=== PATIENT | male | born 1990 | race African-American/Black ===

== ENCOUNTER 2016-03-13 11:36 | Emergency (ER) | payer OTHER ==
--- NOTE | 2016-03-13 11:49 | ER Document Report ---
ED Medical Screen (RME) - General Chief Complaint: Flu Symptoms Stated Complaint: FLU LIKE SIMPTOMS Time seen by provider: 11:47 Mode of Arrival: Ambulatory Information source: Patient Notes: 26-year-old male presents to ED for flu like symptoms for the last 2 weeks. Cough and runny nose with a lot of mucous sometimes he has trouble breathing and sometimes when he coughs, the cough is so bad at times that it stopped him and his tract. I have greeted and performed a rapid initial assessment of this patient. A comprehensive ED assessment and evaluation of the patient, analysis of test results and completion of medical decision making process will be conducted by an additional ED providers. TRAVEL OUTSIDE OF THE [place] IN LAST 30 DAYS: No - Related Data Allergies/Adverse Reactions: Shellfish * [Shellfish] Allergy (Verified 06/21/15 12:14) Past Medical History Pulmonary Medical History: Reports: Hx Asthma - childhood Past Surgical History: Reports: Hx Adenoidectomy, Hx Tonsillectomy - Immunizations Immunizations up to date: Yes Hx Diphtheria, Pertussis, Tetanus Vaccination: Yes Physical Exam - Vital signs Vitals: Temp Pulse Resp BP Pulse Ox 98.2 F 88 18 122/79 97 03/13/16 11:44 03/13/16 11:44 03/13/16 11:44 03/13/16 11:44 03/13/16 11:44 Course - Vital Signs Vital signs: Temp Pulse Resp BP Pulse Ox 98.2 F 88 18 122/79 97 03/13/16 11:44 03/13/16 11:44 03/13/16 11:44 03/13/16 11:44 03/13/16 11:44
[2016-03-13] MEDS ORDERED: ALBUTEROL SULFATE HFA (90 MCG/PUFF) 8 GM MDI (1 MDI/ER DISP) IH ONE (17:46)
--- NOTE | 2016-03-13 17:58 | ER Document Report ---
HPI - HPI Patient complains to provider of: sinus congestion Pain Level: 4 Context: H and is a 26-year-old male presents emergency Department complaining of lethargy, chills, cough, nasal congestion and wheezing. Patient states that he has had symptoms on and off for the past month. He has been taking over-the- counter DayQuil and Tylenol Cold with minimal tenderness congestion but overall pain is improved. Patient does have a history of asthma that he has not been using an albuterol inhaler for a couple years. Otherwise he denies any fever, headaches, chest pain, nausea or vomiting. Tolerating a by mouth even though he has a decreased diet. Denies any abnormal bowel movements Does not have any other past medical history outside of asthma Does not have any past surgical history Social history admits to social alcohol use Denies any allergies does not have a primary care provider - CONSTITUTIONAL Constitutional: REPORTS: Chills - EENT EENT: REPORTS: Ear Pain, Nasal Drainage-Clear - NEURO Neurology: REPORTS: Weakness - RESPIRATORY Respiratory: REPORTS: Coughing - MUSCULOSKELETAL Musculoskeletal: REPORTS: Extremity pain, Back Pain - DERM Skin Color: Normal Past Medical History - General Information source: Patient - Social History Smoking Status: Never Smoker Family History: Malignancy Patient has suicidal ideation: No Patient has homicidal ideation: No Pulmonary Medical History: Reports: Hx Asthma - childhood Renal/ Medical History: Denies: Hx Peritoneal Dialysis Past Surgical History: Reports: Hx Adenoidectomy, Hx Tonsillectomy - Immunizations Immunizations up to date: Yes Hx Diphtheria, Pertussis, Tetanus Vaccination: Yes Vertical Provider Document - CONSTITUTIONAL Exam Limitations: No Limitations General Appearance: WD/WN, Mild Distress - INFECTION CONTROL TRAVEL OUTSIDE OF THE [place] IN LAST 30 DAYS: No - HEENT HEENT: Atraumatic, Normocephalic, PERRLA. negative: Pharyngeal Exudate, Pharyngeal Tenderness, Pharyngeal Erythema, Tympanic Membrane Red, Tympanic Membrane Bulging Notes: sinus pressure and congestion with clear discharge - NECK Neck: Normal Inspection, Supple. negative: Lymphadenopathy-Left, Lymphadenopathy-Right - RESPIRATORY Respiratory: No Respiratory Distress, Chest Non-Tender, Wheezing O2 Sat by Pulse Oximetry: 97 - CARDIOVASCULAR Cardiovascular: Regular Rate, Regular Rhythm, No Murmur Pulses: Bounding: Radial - BACK Back: Normal Inspection - MUSCULOSKELETAL/EXTREMETIES Musculoskeletal/Extremeties: MAEW, FROM, Non-Tender, No Edema - NEURO Level of Consciousness: Awake, Alert, Appropriate Motor/Sensory: No Motor Deficit, No Sensory Deficit - DERM Integumentary: Warm, Dry, No Rash Course - Re-evaluation Re-evalutation: 03/13/16 17:57 Patient is a 26-year-old male who is hemodynamically stable, no acute distress and afebrile. Patient educated on eipo-ehr-ccifrys medications he can take for his nasal congestion. No evidence of pneumonia or other cardiopulmonary process on chest x-ray. We will educate to use albuterol inhaler while here. Wheezing is improved after treatment of Ventolin inhaler. Patient educated on use. Stable for discharge home and can follow-up with his primary care provider - Vital Signs Vital signs: Temp Pulse Resp BP Pulse Ox 98.2 F 88 18 122/79 97 03/13/16 11:46 03/13/16 11:46 03/13/16 11:46 03/13/16 11:46 03/13/16 11:46 - Diagnostic Test Radiology reviewed: Image reviewed, Reports reviewed Discharge - Discharge Clinical Impression: Nasal congestion Asthma Qualifiers: Asthma severity: mild intermittent Asthma complication type: uncomplicated Qualified Code(s): J45.20 - Mild intermittent asthma, uncomplicated Condition: Good Disposition: HOME, SELF-CARE Instructions: Bronchospasm ([facility]) Additional Instructions: Here is a list of medications that will help with your symptoms. All of these are available in multiple forms over the counter - Acetaminophen: pain reliever and fever lab pack chemist - Phenylephrine: Nasal decongestant - Benadryl: antihistamine, will help you sleep - You can also use a Neti pot for nasal and sinus irrigation Forms: Return to Work, Parent Work Note
[2016-03-13 18:33] VITALS: BP 118/71
== END 2016-03-13 18:32 | disposition home or self-care (01) ==
LOC: ER 11:36
DX: J45.20 Mild intermittent asthma, uncomplicated (principal); R09.81 Nasal congestion; R05 Cough; R06.2 Wheezing
CPT/HCPCS: 99283; 71020; J3490

== ENCOUNTER 2016-03-28 09:47 | Emergency (ER) | payer OTHER ==
[2016-03-28] MEDS ORDERED: ONDANSETRON 4 MG TAB.RAPDIS PO ONE (10:34)
--- NOTE | 2016-03-28 10:35 | ER Document Report ---
ED Medical Screen (RME) - General Stated Complaint: WEAK Mode of Arrival: Ambulatory Information source: Patient Notes: Patient complains of fever off and on and generalized weakness for the past 2 to weeks. Patient does complain of cough and cold symptoms. Patient does complain of nausea, vomiting, diarrhea. No abdominal pain. hx: None I have greeted and performed a rapid initial assessment of this patient. A comprehensive ED assessment and evaluation of the patient, analysis of test results and completion of the medical decision making process will be conducted by additional ED providers. TRAVEL OUTSIDE OF THE [place] IN LAST 30 DAYS: No - Related Data Allergies/Adverse Reactions: Shellfish * [Shellfish] Allergy (Verified 03/28/16 10:32) Past Medical History Pulmonary Medical History: Reports: Hx Asthma - childhood Renal/ Medical History: Denies: Hx Peritoneal Dialysis Past Surgical History: Reports: Hx Adenoidectomy, Hx Tonsillectomy - Immunizations Immunizations up to date: Yes Hx Diphtheria, Pertussis, Tetanus Vaccination: Yes Physical Exam - Vital signs Vitals: Temp Pulse Resp BP Pulse Ox 98.6 F 104 H 18 111/63 94 03/28/16 10:19 03/28/16 10:19 03/28/16 10:19 03/28/16 10:19 03/28/16 10:19 - General General appearance: Appears well, Alert In distress: None Course - Vital Signs Vital signs: Temp Pulse Resp BP Pulse Ox 98.6 F 104 H 18 111/63 94 03/28/16 10:19 03/28/16 10:19 03/28/16 10:19 03/28/16 10:19 03/28/16 10:19
[2016-03-28 11:03] LABS: ABSOLUTE LYMPHOCYTES (AUTO) 2.5 10^3/uL (0.5-4.7); ABSOLUTE MONOCYTES (AUTO) 0.7 10^3/uL (0.1-1.4); BASOPHILS % (AUTO) 0.4 % (0-2); EOSINOPHILS % (AUTO) 0.1 % (0-6); HEMATOCRIT 41.4 % (37.9-51.0); HEMOGLOBIN 14.1 g/dL (13.5-17.0); HGB HCT DIFFERENCE 0.9; LYMPHOCYTES % (AUTO) 34.6 % (13-45); MEAN CORPUSCULAR HEMOGLOBIN 30.3 pg (27.0-33.4); MEAN CORPUSCULAR VOLUME 89 fl (80-97); MONOCYTES % (AUTO) 10.2 % (3-13); RED BLOOD COUNT 4.63 10^6/uL (4.35-5.55); RED CELL DISTRIBUTION WIDTH 12.6 % (11.5-14.0); SEGMENTED NEUTROPHILS % (AUTO) 54.7 % (42-78); WHITE BLOOD COUNT 7.3 10^3/uL (4.0-10.5)
[2016-03-28 11:07] LABS: APPEARANCE,URINE SLIGHTLY-CLOUDY; BILIRUBIN,URINE NEGATIVE (NEGATIVE); GLUCOSE, URINE NEGATIVE (NEGATIVE); KETONES,URINE NEGATIVE (NEGATIVE); LEUKOCYTE ESTERASE,URINE NEGATIVE (NEGATIVE); NITRITE,URINE NEGATIVE (NEGATIVE); PROTEIN,URINE 30 mg/dL (NEGATIVE); URINE SPECIFIC GRAVITY 1.034
[2016-03-28 11:23] LABS: ALANINE AMINOTRANSFERASE 35 U/L (21-72); ALBUMIN 4.8 g/dL (3.5-5.0); ALKALINE PHOSPHATASE 85 U/L (38-126); ANION GAP 13 (5-19); ASPARTATE AMINO TRANSFERASE 30 U/L (17-59); BILIRUBIN,TOTAL 0.5 mg/dL (0.2-1.3); BLOOD UREA NITROGEN 13 mg/dL (7-20); CALCIUM 9.5 mg/dL (8.4-10.2); CARBON DIOXIDE 29 mmol/L (22-30); CHLORIDE 100 mmol/L (98-107); CREATININE RESULT 1.04 mg/dL (0.52-1.25); LIPASE 84.5 U/L (23-300); POTASSIUM 4.3 mmol/L (3.6-5.0); SODIUM 141.5 mmol/L (137-145); TOTAL PROTEIN 8.5 g/dL (6.3-8.2)
[2016-03-28 11:39] LABS: GLUCOSE 88 mg/dL (75-110)
[2016-03-28] MEDS ORDERED: NORMAL SALINE 1000 ML 1,000 ML IV PRN (12:48)
--- NOTE | 2016-03-28 13:40 | ER Document Report ---
ED General - General Chief Complaint: Cold Symptoms Stated Complaint: WEAK Mode of Arrival: Ambulatory TRAVEL OUTSIDE OF THE [place] IN LAST 30 DAYS: No - HPI Patient complains to provider of: flulike symptoms Notes: Patient complains of fever off and on and generalized weakness for the past 2 to weeks. Patient does complain of cough and cold symptoms. Patient does complain of nausea, vomiting, diarrhea. Patient states symptoms ongoing since the last 2 weeks states patient states multiple sick contacts at home. Denies any recent antibiotics travel. - Related Data Allergies/Adverse Reactions: Shellfish * [Shellfish] Allergy (Verified 03/28/16 10:32) Past Medical History - General Information source: Patient - Social History Smoking Status: Never Smoker Chew tobacco use (# tins/day): No Frequency of alcohol use: None Drug Abuse: None Family History: Malignancy Patient has suicidal ideation: No Patient has homicidal ideation: No Pulmonary Medical History: Reports: Hx Asthma - childhood Renal/ Medical History: Denies: Hx Peritoneal Dialysis Past Surgical History: Reports: Hx Adenoidectomy, Hx Tonsillectomy - Immunizations Immunizations up to date: Yes Hx Diphtheria, Pertussis, Tetanus Vaccination: Yes Review of Systems - Review of Systems Constitutional: Fever, Malaise, Weakness EENT: No symptoms reported Cardiovascular: No symptoms reported Respiratory: No symptoms reported Gastrointestinal: Diarrhea, Nausea, Vomiting Genitourinary: No symptoms reported Male Genitourinary: No symptoms reported Musculoskeletal: No symptoms reported Skin: No symptoms reported Hematologic/Lymphatic: No symptoms reported Neurological/Psychological: No symptoms reported -: Yes All other systems reviewed and negative Physical Exam - Vital signs Vitals: Temp Pulse Resp BP Pulse Ox 98.6 F 104 H 18 111/63 94 03/28/16 10:19 03/28/16 10:19 03/28/16 10:19 03/28/16 10:19 03/28/16 10:19 Interpretation: Normal - General General appearance: Appears well, Alert - HEENT Head: Normocephalic, Atraumatic Eyes: Normal Pupils: PERRL - Respiratory Respiratory status: No respiratory distress Chest status: Nontender Breath sounds: Normal Chest palpation: Normal - Cardiovascular Rhythm: Regular Heart sounds: Normal auscultation Murmur: No - Abdominal Inspection: Normal Distension: No distension Bowel sounds: Normal Tenderness: Nontender Organomegaly: No organomegaly - Back Back: Normal, Nontender - Extremities General upper extremity: Normal inspection, Nontender, Normal color, Normal ROM , Normal temperature General lower extremity: Normal inspection, Nontender, Normal color, Normal ROM , Normal temperature, Normal weight bearing. No: Ranjit's sign - Neurological Neuro grossly intact: Yes Cognition: Normal Orientation: AAOx4 Maurisio Coma Scale Eye Opening: Spontaneous [place] Coma Scale Verbal: Oriented [place] Coma Scale Motor: Obeys Commands Maurisio Coma Scale Total: 15 Speech: Normal Motor strength normal: LUE, RUE, LLE, RLE Sensory: Normal - Psychological Associated symptoms: Normal affect, Normal mood - Skin Skin Temperature: Warm Skin Moisture: Dry Skin Color: Normal Course - Re-evaluation Re-evalutation: 03/28/16 20:33 Patient has been evaluated for flulike symptoms. At this time there is no signs of serious illness no signs of sepsis or other serious etiologies. Patient was educated about the disease process. Patient was placed on the appropriate medications to help with their symptoms. Patient was also encouraged to drink plenty of fluids and stay well hydrated. Patient is to followup with their primary care provider. - Vital Signs Vital signs: Temp Pulse Resp BP Pulse Ox 98.1 F 80 18 110/60 100 03/28/16 13:56 03/28/16 13:56 03/28/16 13:56 03/28/16 13:56 03/28/16 13:56 - Laboratory Result Diagrams: 03/28/16 10:50 03/28/16 10:50 Laboratory results interpreted by me: 03/28/16 03/28/16 10:50 10:50 Total Protein 8.5 H Urine Protein 30 H Urine Urobilinogen 2.0 H Discharge - Discharge Clinical Impression: Viral illness Condition: Good Disposition: HOME, SELF-CARE Instructions: Fever ([facility]), Acetaminophen, Viral Syndrome ([facility]), Ibuprofen ( General) ([facility]) Additional Instructions: Follow-up with your primary care physician. Take medication as prescribed for nausea vomiting. Prescriptions: Ondansetron [Zofran Odt 4 mg Tablet] 1 - 2 tab PO Q4H PRN #15 tab.rapdis PRN Reason: For Nausea/Vomiting Promethazine HCl [Phenergan 25 mg Tablet] 1 - 2 tab PO Q6H PRN #15 tablet PRN Reason: Forms: Return to Work Referrals: [facility] [Primary Care Provider] - Follow up in 3-5 days
[2016-03-28 13:58] VITALS: BP 110/60
== END 2016-03-28 13:57 | disposition home or self-care (01) ==
LOC: ER 09:47
DX: R53.1 Weakness (principal); R50.9 Fever, unspecified; B34.9 Viral infection, unspecified; R11.2 Nausea with vomiting, unspecified; R19.7 Diarrhea, unspecified; Z91.013 Allergy to seafood
CPT/HCPCS: 99283; 36415; 83690; 85025; 80053; 81001; 71020; S0119; J7030

== ENCOUNTER 2016-10-25 17:28 | Emergency (ER) | payer OTHER ==
[2016-10-25] MEDS ORDERED: IBUPROFEN 800 MG TABLET PO ONE (18:42)
[2016-10-25] MEDS ORDERED: PSEUDOEPHEDRINE HCL 30 MG TABLET PO ONE (18:42)
[2016-10-25] MEDS ORDERED: LORATADINE 10 MG TABLET PO ONE (18:42)
[2016-10-25] MEDS ORDERED: GUAIFENESIN 600 MG TABLET.SA PO ONE (18:42)
--- NOTE | 2016-10-25 18:49 | ER Document Report ---
ED ENT - General Chief Complaint: Sinus Congestion Stated Complaint: CONGESTION,SINUS PAIN,FEVER Time Seen by Provider: 10/25/16 18:33 Mode of Arrival: Ambulatory Information source: Patient Notes: 26-year-old male presents to ED for cough and cold symptoms. He states he had a fever of 100-2 days ago but no fever since then. He denies any shortness of breath or difficulty breathing. TRAVEL OUTSIDE OF THE [place] IN LAST 30 DAYS: No - HPI Onset: Other Onset/Duration: Gradual - 3 days Quality of pain: Achy Severity: Mild Pain Level: 2 Context: Recent Illness Location of pain: Nose, Sinus, Throat Associated symptoms: Nose bleed, Runny nose, Sinus pain, Sinus drainage, Sore throat Similar symptoms previously: Yes Recently seen / treated by doctor: No - Related Data Allergies/Adverse Reactions: Shellfish * [Shellfish] Allergy (Verified 10/25/16 17:44) Past Medical History - General Information source: Patient - Social History Smoking Status: Never Smoker Cigarette use (# per day): No Chew tobacco use (# tins/day): No Smoking Education Provided: No Frequency of alcohol use: None Drug Abuse: None Occupation: [employer] with: Family Family History: Malignancy Patient has suicidal ideation: No Patient has homicidal ideation: No - Past Medical History Cardiac Medical History: Reports: None Pulmonary Medical History: Reports: Hx Asthma - childhood EENT Medical History: Reports: None Neurological Medical History: Reports: None Endocrine Medical History: Reports: None Renal/ Medical History: Reports: None Malignancy Medical History: Reports None GI Medical History: Reports: None Musculoskeltal Medical History: Reports None Skin Medical History: Reports None Psychiatric Medical History: Reports: None Traumatic Medical History: Reports: None Infectious Medical History: Reports: None Past Surgical History: Reports: Hx Adenoidectomy, Hx Tonsillectomy - Immunizations Immunizations up to date: Yes Hx Diphtheria, Pertussis, Tetanus Vaccination: Yes Review of Systems - Review of Systems Constitutional: Fever, Recent illness EENT: Nose congestion, Nose discharge, Sinus pressure, Sinus discharge, Throat pain Cardiovascular: No symptoms reported Respiratory: Cough Gastrointestinal: No symptoms reported Genitourinary: No symptoms reported Male Genitourinary: No symptoms reported Musculoskeletal: No symptoms reported Skin: No symptoms reported Hematologic/Lymphatic: No symptoms reported Neurological/Psychological: No symptoms reported -: Yes All other systems reviewed and negative Physical Exam - Vital signs Vitals: Temp Pulse Resp BP Pulse Ox 98.5 F 87 16 127/78 H 98 10/25/16 17:44 10/25/16 17:44 10/25/16 17:44 10/25/16 17:44 10/25/16 17:44 Interpretation: Normal - General General appearance: Appears well, Alert - HEENT Head: Normocephalic, Atraumatic Eyes: Normal Pupils: PERRL Ears: Normal External canal: Normal Tympanic membrane: Normal Sinus: Normal Nasal: Purulent discharge, Swelling Mouth/Lips: Normal Mucous membranes: Normal Pharynx: Post nasal drainage Neck: Normal - Respiratory Respiratory status: No respiratory distress Chest status: Nontender Breath sounds: Normal Chest palpation: Normal - Cardiovascular Rhythm: Regular Heart sounds: Normal auscultation Murmur: No - Abdominal Inspection: Normal Distension: No distension Bowel sounds: Normal Tenderness: Nontender Organomegaly: No organomegaly - Back Back: Normal, Nontender - Extremities General upper extremity: Normal inspection, Nontender, Normal color, Normal ROM , Normal temperature General lower extremity: Normal inspection, Nontender, Normal color, Normal ROM , Normal temperature, Normal weight bearing. No: Ranjit's sign - Neurological Neuro grossly intact: Yes Cognition: Normal Orientation: AAOx4 Page Coma Scale Eye Opening: Spontaneous [place] Coma Scale Verbal: Oriented Maurisio Coma Scale Motor: Obeys Commands [place] Coma Scale Total: 15 Speech: Normal Motor strength normal: LUE, RUE, LLE, RLE Sensory: Normal - Psychological Associated symptoms: Normal affect, Normal mood - Skin Skin Temperature: Warm Skin Moisture: Dry Skin Color: Normal Course - Re-evaluation Re-evalutation: 10/25/16 22:07 Assessment consistent with upper respiratory infection. No signs of a sinus infection. Signs of strep throat. Afebrile vital signs stable. Was discharged home after receiving Claritin and Sudafed and Mucinex and ibuprofen. He was suggested that he use these at home if they improve his symptoms today. - Vital Signs Vital signs: Temp Pulse Resp BP Pulse Ox 98.5 F 81 16 128/84 H 100 10/25/16 17:44 10/25/16 18:54 10/25/16 18:54 10/25/16 18:54 10/25/16 18:54 Discharge - Discharge Clinical Impression: URI (upper respiratory infection) Qualifiers: URI type: unspecified URI Qualified Code(s): J06.9 - Acute upper respiratory infection, unspecified Condition: Stable Disposition: HOME, SELF-CARE Instructions: Family Physicians / Practices Additional Instructions: UPPER RESPIRATORY ILLNESS: You have a viral infection of the respiratory passages -- a "cold." This common infection causes nasal congestion, drainage, and often sore throat and cough. It is highly contagious. The disease usually lasts about 10 to 14 days. There is no "cure" for the viral infection -- it must run its course. If there is a complication, such as bacterial infection in the nose, sinuses, middle ear, or bronchial tubes, antibiotics may be required. The antibiotics won't affect the virus. Drink plenty of fluids. A humidifier may help. An expectorant medication or decongestant may make you more comfortable. Use acetaminophen or ibuprofen for fever or aches. See the doctor if fever persists over two days, if there is any significant worsening of your symptoms, or if you simply fail to improve as expected. DECONGESTANT MEDICATION: A decongestant medicine has been suggested. Often this medicine is combined in the same tablet with an antihistamine or expectorant. This type of medicine is helpful in treating a bad cold or sinus condition, as well as in treatment of the nasal congestion of hay fever. It is not of much benefit for lung infections. Decongestant medicines are related to stimulants. They can cause an increase in blood pressure and heart rate. Persons with heart disease and high blood pressure should not take decongestants without discussing this with the physician. If you develop palpitations, chest pain, headache, or tremors, stop the medicine and consult your physician. COUGH-SUPPRESSANT & EXPECTORANT MEDICATION: You are to use a cough medication as needed for relief of symptoms. This medicine is a combination of an expectorant (to make the mucous thinner and more easily "coughed up") and a cough suppressant (to reduce the frequency of coughing). The cough-suppressant medicine is related to narcotics. You may experience mild nausea and sleepiness. Some patients who are very sensitive to narcotics may have stomach pain from this medicine. Taking the medicine with food reduces these side effects. Do not drive or work with machinery until you know how this medicine affects you. The expectorant should have no side effects. Iodine-containing expectorants (such as organidin) should not be taken by persons with active thyroid disease unless approved by your doctor. Call the doctor if you develop shortness of breath, hives, rash, itching, lightheadedness, or severe nausea and vomiting. Ibuprofen Ibuprofen is an excellent, safe drug for pain control. In addition, it has potent antiinflammatory effects which are beneficial, especially in the treatment of injuries, arthritis, or tendonitis. It's best to take ibuprofen with food. Persons with ulcer disease or allergy to aspirin should notify their physician of this before taking ibuprofen. Take the medication exactly as prescribed. Don't take additional doses unless instructed to do so by your doctor. If you develop wheezing, shortness of breath, hives, faintness, stomach pain, vomiting, or dark black stools, return for re-evaluation at once. USE OF ACETAMINOPHEN (Tylenol): Acetaminophen may be taken for pain relief or fever control. It's much safer than aspirin, offering a wider range of "safe" dosages. It is safe during . Some brand names are Tylenol, Panadol, Datril, Anacin 3, Tempra, and Liquiprin. Acetaminophen can be repeated every four hours. The following are maximum recommended dosages: >89 pounds or adults 650 mg to 900 mg Acetaminophen can be repeated every four hours. Maximum dose not to exceed 4000 mg a day. Use saline nasal spray 2-3 times a day to help with your nasal drainage, and use salt and soda solution for your sore throat. 1 quart of water 1 tablespoon of salt 1 teaspoon of baking soda Mixed 3 ingredients together and boil for 1 minute Placed in a covered quart jar Use 1/2 ounce of cold solution to gargle 3 times a day FOLLOW-UP CARE: If you have been referred to a physician for follow-up care, call the physician s office for an appointment as you were instructed or within the next two days. If you experience worsening or a significant change in your symptoms, notify the physician immediately or return to the Emergency Department at any time for re-evaluation. Forms: Elevated Blood Pressure, Return to Work Referrals: [facility] [Provider Group] - Follow up as needed
[2016-10-25 18:56] VITALS: BP 128/84
== END 2016-10-25 18:54 | disposition home or self-care (01) ==
LOC: ER 17:28
DX: J06.9 Acute upper respiratory infection, unspecified (principal); R09.81 Nasal congestion; R51 Headache; R50.9 Fever, unspecified
CPT/HCPCS: 99283

== ENCOUNTER → 2018-05-28 | Outpatient (CLI) | payer BC | LOC: OD 10:38 | PROVIDERS: ATTEND Otolaryngology | DX: R09.81 Nasal congestion (principal) | CPT/HCPCS: 36415; 82785; 86003 ==

== ENCOUNTER → 2020-01-27 | Outpatient (CLI) | payer SELFPAY ==
--- NOTE | 2020-01-27 12:05 | ER [facility] ASSESSMENT REPORT ---
Intake - In the Last 14 days Have you traveled outside [place]?: No Have you been in close contact with someone CONFIRMED: Yes Worked in Healthcare?: No - Symptoms Subjective Fever([place] feverish): No Chills: No Muscule Aches: Yes Runny Nose: No Sore Throat: No Cough (New or worsening chronic cough): No Shortness of breath: No Nausea or Vomiting: No Headache: No Abdominal Pain: No Diarrhea(3 or more loose stools in last 24 hours): No - Do you have any of the following Chronic lung disease: Asthma or emphysema or COPD: No Cystic Fibrosis: No Diabetes: No High Blood Pressure: No Cardiovascular Disease: No Chronic Kidney Disease: No Chronic Liver Disease: No Chronic blood disorder like Sickle Cell Disease: No Weak immune system due to disease or medication: No Neurologic condition that limits movement: No Developmental delay - Moderate to Severe: No Recent (within past 2 weeks) or current : No Morbid Obesity (>100 pounds over ideal weight): No - Objective Temperature: 98.6 F Pulse Rate: 90 Respiratory Rate: 16 Blood Pressure: 117/74 O2 Sat by Pulse Oximetry: 98 Objective: Given above, testing performed: If Testing Performed: Test Specimen Type Sent to General - General Information source: Patient Notes: Patient presents to the [facility] for screening for the coronavirus. Patient reports recent exposure to spouse who tested positive. - Related Data Allergies/Adverse Reactions: Shellfish * [Shellfish] Allergy (Verified 10/25/16 17:44) Past Medical History - General Information source: Patient - Social History Family History: Malignancy Pulmonary Medical History: Reports: Hx Asthma - childhood Renal/ Medical History: Denies: Hx Peritoneal Dialysis Past Surgical History: Reports: Hx Adenoidectomy, Hx Tonsillectomy Physical Exam - Notes Notes: The patient was evaluated during the global Covid 19 pandemic, and that diagnosis was suspected/considered upon their initial presentation. Their evaluation and testing was consistent with current guidelines for patients who present with complaints or symptoms that may be related to Covid 19. Full physical exam could not be performed due to covid 19 isolation protocols. Constitutional: Nontoxic appearance, no acute distress Eyes: Nonicteric, extraocular movements intact, sclera clear Cardiovascular: Heart rate and rhythm regular, no JVD Respiratory: Breath sounds clear bilaterally, nonlabored breathing, no use of accessory muscles, no tachypnea Gastrointestinal: Abdomen not distended Muculoskeletal: Moves all extremities well Skin: Normal color Neuro: Awake alert oriented, normal speech Psych: Normal mood and affect Diagnostic Results Laboratory Results: Patient presents with symptoms worrisome for possible Covid 19. Patient does not have emergency worrying symptoms such as difficulty breathing, shortness of breath, chest pain, pressure, confusion or cyanosis. Patient appears suitable for discharge as they are not of an advanced age, do not have any chronic medical conditions such as diabetes, CAD, immune deficiency, chronic lung disease or chronic kidney disease. Patient's vital signs are stable and patient is nontoxic in appearance. Good return precautions have been discussed with patient, patient verbalized understanding and is agreeable with discharge plan of care at this time. Patient Education/Counseling Counseling/Education: Patient was provided with discharge information including: As a person under investigation for Covid 19, the [place] department of Health and Human Services, division of public health advises you to adhere to the following guidance until your test results are reported to you. If your test result is positive, you will receive additional information from your provider and your local health department at that time. Remain at home until you are cleared by the health provider or public health authorities. Keep a log of visitors to your home, notify any visitors to your home of your isolation status. If you plan to move to a new address or leave the county, notify the local health department in your County. Call your doctor or seek care if you have an urgent medical need. Before seeking medical care, call ahead to get instructions from the provider before arriving at the medical office clinic or hospital. Notify them that you are being tested for the virus that causes Covid 19 so that arrangements can be made, as necessary, to prevent transmission to others in the healthcare setting. Next, notify the local health department in your county. If a medical emergency arises and you need to call 911, inform the first responders that you are being tested for the virus that causes Covid 19. Next, notify the local health department in your county. [facility] Discharge - Discharge Clinical Impression: Encounter for screening laboratory testing for COVID-19 virus Condition: Stable Disposition: Home; Selfcare
[2020-01-27 12:44] VITALS: BP 117/74
== END ==
LOC: RDC 11:45
PROVIDERS: ATTEND Nurse Practitioner Family
DX: U07.1 COVID-19 (principal)
CPT/HCPCS: 87070; 87880; 87635; 99201; 99211; C9803

== ENCOUNTER 2020-02-26 08:50 | Emergency (ER) | payer SELFPAY ==
--- NOTE | 2020-02-26 13:25 | ER Document Report ---
ED General - General Chief Complaint: Foreign Body in Ear Stated Complaint: EAR ISSUE Time Seen by Provider: 02/26/20 12:41 TRAVEL OUTSIDE OF THE [place] IN LAST 30 DAYS: No - HPI Notes: Chief complaint: Foreign body right ear canal History of present illness: Generally healthy 30-year-old male with no significant prior medical history presents today reporting that end of a Q-tip came off in his right ear canal while he was cleaning wax from the ear last night and he feels persistent foreign body in the ear and would like to have this removed if possible. No other complaints at this time. - Related Data Allergies/Adverse Reactions: Shellfish * [Shellfish] Allergy (Verified 02/26/20 09:49) Past Medical History - General Information source: Patient - Social History Smoking Status: Never Smoker Frequency of alcohol use: None Drug Abuse: None Lives with: Family Family History: Malignancy Pulmonary Medical History: Reports: Hx Asthma - childhood Renal/ Medical History: Denies: Hx Peritoneal Dialysis Past Surgical History: Reports: Hx Adenoidectomy, Hx Tonsillectomy - Immunizations Immunizations up to date: Yes Hx Diphtheria, Pertussis, Tetanus Vaccination: Yes Review of Systems - Review of Systems Notes: Constitutional: Negative for fever. HENT: As per HPI. Eyes: Negative for visual changes. Cardiovascular: Negative for chest pain. Respiratory: Negative for shortness of breath. Gastrointestinal: Negative for abdominal pain, vomiting or diarrhea. Genitourinary: Negative for dysuria. Musculoskeletal: Negative for back pain. Skin: Negative for rash. Neurological: Negative for headaches, weakness or numbness. 10 point ROS negative except as marked above and in HPI. Physical Exam - Vital signs Vitals: Temp Pulse Resp BP Pulse Ox 98.0 F 58 L 16 137/86 H 98 02/26/20 08:55 02/26/20 08:55 02/26/20 08:55 02/26/20 08:55 02/26/20 08:55 - Notes Notes: GENERAL: Male patient of approximately stated age appearing in no acute distress. SKIN: Good turgor no rashes. HEAD: Normocephalic atraumatic. EYES: PERRLA. EOMI. Conjunctivae and sclerae clear. EARS: Left canal TM clear. Right canal shows presence of a small cotton foreign body. NECK: Supple. No masses or thyromegaly. No adenopathy. Carotids 2+ without bruits. No JVD. BACK: Symmetrical without tenderness. CHEST: Respirations unlabored. Breath sounds clear and symmetrical. HEART: Regular rhythm. No murmur gallop or rub. ABDOMEN: Soft nontender without masses, organomegaly or rebound. Bowel sounds normally active. No bruits. EXTREMITIES: No edema. No calf tenderness. Cap refill less than 1.5 seconds. Dorsalis pedis and posterior tibial pulses 3+ and symmetrical. NEUROLOGICAL: Alert and oriented x3. Nonfocal. PSYCHIATRIC: Appropriate affect. Course - Re-evaluation Re-evalutation: 02/26/20 15:10 Foreign body removed from right ear canal under direct visualization - Vital Signs Vital signs: Temp Pulse Resp BP Pulse Ox 98.0 F 58 L 16 137/86 H 98 02/26/20 08:55 02/26/20 08:55 02/26/20 08:55 02/26/20 08:55 02/26/20 08:55 - Laboratory Results Critical Laboratory Results Reviewed: No Critical Results - Radiology Results Critical Radiology Results Reviewed: No Critical Results Procedures - Joint Reduction/Fracture Care Right Head Time completed: 15:00 - Removal foreign body right ear canal Consent obtained: Yes Conscious sedation: No Manipulation comment: Difficult removal under direct visualization with al ligator forceps Reduction attempts: 3 Complications: No Notes: 02/26/20 15:09 Successful removal of cotton from end of Q-tip Discharge - Discharge Clinical Impression: Foreign body right ear canal Condition: Stable Disposition: HOME, SELF-CARE Additional Instructions: Do not place Q-tips in your ear. You may take Tylenol or Motrin as needed for pain. Use prescribed drops as directed. Prescriptions: Neomy Sulf/Polymyx B Sulf/Hc [Cortisporin Otic Susp] 3 drop AD QID #1 bottle Referrals: [facility] [Provider Group] - Follow up as needed
[2020-02-26 15:50] VITALS: BP 128/90
== END 2020-02-26 15:49 | disposition home or self-care (01) ==
LOC: ER 08:50
DX: T16.1XXA Foreign body in right ear, initial encounter (principal); X58.XXXA Exposure to other specified factors, initial encounter; Y93.E8 Activity, other personal hygiene; Z91.013 Allergy to seafood
CPT/HCPCS: 99283